=== PATIENT | female | born 2000 | race Two or more races ===

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

== ENCOUNTER 2021-01-07 22:59 | Emergency (ER) | payer BC ==
--- NOTE | 2021-01-08 00:24 | EDM.PDOCBH ---
ED HPI GENERAL MEDICAL PROBLEM - General Chief Complaint: Behavioral/Psych Stated Complaint: ANXIETY Time Seen by Provider: 01/07/21 23:50 Source of Information: Reports: Patient, Family History Limitations: Reports: No Limitations - History of Present Illness INITIAL COMMENTS - FREE TEXT/NARRATIVE: 20-year-old female who 2 weeks ago had an anxiety like attack where she felt the right side of her body felt "weird". Since that time she has intermittent recurrences of just a strange sensation on the right side of her body, not really numbness or weakness, she cannot really describe it. She is having no pain, no headaches, no visual complaints, no rashes. She has a chronic problem with somatic manifestations of anxiety. Onset: Unknown/Unsure Duration: Other (Waxing and waning for the last few weeks) Location: Reports: Other (She complains about a strange sensation on the right side of her body) Associated Symptoms: Denies: Chest Pain, Cough, Fever/Chills, Headaches, Loss of Appetite, Nausea/Vomiting, Shortness of Breath - Related Data Allergies Allergy/AdvReac Type Severity Reaction Status Date / Time No Known Allergies Allergy Verified 01/07/21 23:59 Home Meds: Home Meds NK [No Known Home Meds] 07/24/19 [History] Past Medical History - Past Health History Medical/Surgical History: Denies Medical/Surgical History Social & Family History - Tobacco Use Tobacco Use Status *Q: Never Tobacco User - Caffeine Use Caffeine Use: Reports: None - Recreational Drug Use Recreational Drug Use: No ED ROS GENERAL - Review of Systems Review Of Systems: See Below Constitutional: Reports: Malaise. Denies: Fever, Chills HEENT: Denies: Eye Pain, Throat Pain, Vision Change Respiratory: Denies: Shortness of Breath, Cough Cardiovascular: Denies: Chest Pain, Palpitations Endocrine: Denies: Fatigue GI/Abdominal: Denies: Abdominal Pain, Nausea, Vomiting Musculoskeletal: Reports: No Symptoms Skin: Denies: Rash Neurological: Reports: Paresthesia (Not really numbness but just a strange sensation on the right side of her body) ED EXAM, BEHAVIORAL HEALTH - Physical Exam Exam: See Below Exam Limited By: No Limitations General Appearance: Alert, No Apparent Distress Eye Exam: Bilateral Eye: Normal Inspection Head: Atraumatic Neck: Supple, Non-Tender Respiratory/Chest: Lungs Clear Cardiovascular: Regular Rate, Rhythm GI/Abdominal: Non-Tender Extremities: Normal Inspection Neurological: Alert, Normal Mood/Affect, No Motor/Sensory Deficits, Oriented x 3 Psychiatric: Alert, Normal Affect Skin Exam: Warm, Dry COURSE, BEHAVIORAL HEALTH COMP - Course Vital Signs: Last Vital Signs Temp 97.4 F 01/08/21 00:01 Pulse 89 01/08/21 00:01 Resp 16 01/08/21 00:01 BP 134/88 01/08/21 00:01 Pulse Ox 97 01/08/21 00:01 Re-Assessment/Re-Exam: Symptoms and physical exam are normal at this time. I think she should recheck at the clinic as planned, and discuss further work-up such as MRI or possibly Holter monitor. I do think a long-term treatment for anxiety with an SSRI or similar medication would be beneficial. Departure - Departure Time of Disposition: 00:36 Disposition: Home, Self-Care 01 Clinical Impression: Anxiety, Paresthesias - Discharge Information Instructions: Paresthesia Referrals: PCP,None [Primary Care Provider] - Forms: ED Department Discharge Care Plan Goals: See if someone can see you in the clinic to discuss your symptoms and schedule an MRI prior to starting medications which may be helpful. Sepsis Event Note (ED) - Evaluation Sepsis Screening Result: No Definite Risk - Focused Exam Vital Signs: Vital Signs Temp Pulse Resp BP Pulse Ox 01/08/21 00:01 97.4 F 89 16 134/88 97 01/07/21 23:40 97.4 F 89 16 134/88 97
== END 2021-01-08 00:36 | disposition home or self-care (01) ==
LOC: JP.ED 22:59
DX: F41.9 Anxiety disorder, unspecified (principal); R20.2 Paresthesia of skin
CPT/HCPCS: 99283

== ENCOUNTER 2021-01-09 20:45 | Emergency (ER) | payer BC ==
[2021-01-09] MEDS ORDERED: LORazepam 1 MG Tab PO ONE (21:35)
--- NOTE | 2021-01-09 21:42 | EDM.PDOCBH ---
ED HPI GENERAL MEDICAL PROBLEM - General Chief Complaint: Behavioral/Psych Stated Complaint: ANXIETY Time Seen by Provider: 01/09/21 21:10 Source of Information: Reports: Patient, Family History Limitations: Reports: No Limitations - History of Present Illness INITIAL COMMENTS - FREE TEXT/NARRATIVE: 20-year-old female in for recheck of anxiety. I have seen her several times the last few years with anxiety manifesting as physical symptoms such as numbness on the right side. I saw her in the emergency room 2 nights ago, she had a recheck in clinic today with numerous labs and has an MRI of her head tomorrow. She is very anxious tonight, feels fatigued, still having right-sided symptoms and did not think she can wait until tomorrow. Onset: Unknown/Unsure Duration: Chronic Associated Symptoms: Reports: Other (Right-sided sensations difficult to describe) - Related Data Allergies Allergy/AdvReac Type Severity Reaction Status Date / Time No Known Allergies Allergy Verified 01/09/21 21:09 Home Meds: Home Meds NK [No Known Home Meds] 07/24/19 [History] Past Medical History - Past Health History Medical/Surgical History: Denies Medical/Surgical History Psychiatric History: Reports: Anxiety - Infectious Disease History Infectious Disease History: Reports: None Social & Family History - Tobacco Use Tobacco Use Status *Q: Never Tobacco User - Caffeine Use Caffeine Use: Reports: None - Recreational Drug Use Recreational Drug Use: No ED ROS GENERAL - Review of Systems Review Of Systems: See Below Constitutional: Reports: Malaise. Denies: Fever, Chills HEENT: Denies: Vision Change Respiratory: Denies: Shortness of Breath Cardiovascular: Denies: Chest Pain Endocrine: Reports: Fatigue GI/Abdominal: Denies: Nausea, Vomiting Skin: Reports: No Symptoms Neurological: Reports: Paresthesia (Right-sided paresthesias or "strange feeling") Psychiatric: Reports: Anxiety, Depression ED EXAM, BEHAVIORAL HEALTH - Physical Exam Exam: See Below Exam Limited By: No Limitations General Appearance: Alert, No Apparent Distress Eye Exam: Bilateral Eye: Normal Inspection Head: Atraumatic Neck: Supple, Non-Tender Respiratory/Chest: Lungs Clear Cardiovascular: Regular Rate, Rhythm Neurological: Alert, No Motor/Sensory Deficits (Strength and sensation to extremities are equal, reflexes are normal), Oriented x 3 Psychiatric: Restless, Other (Continues to be very anxious) Skin Exam: Warm, Dry COURSE, BEHAVIORAL HEALTH COMP - Course Vital Signs: Last Vital Signs Temp 97.7 F 01/09/21 21:04 Pulse 88 01/09/21 21:04 Resp 16 01/09/21 21:04 BP 128/83 01/09/21 21:04 Pulse Ox 99 01/09/21 21:04 Orders, Labs, Meds: Medications Discontinued Medications Generic Name Dose Route Start Last Admin Trade Name Herb PRN Reason Stop Dose Admin Lorazepam 1 mg 01/09/21 21:35 01/09/21 21:43 Lorazepam 1 Mg Tab PO 01/09/21 21:36 1 mg ONETIME ONE Administration Re-Assessment/Re-Exam: Reviewed her labs from the clinic today and they are all normal. Physical exam is normal. I did give her 1 mg of Ativan so she can rest tonight before her MRI, I think she should be a good candidate for an SSRI when and if her MRI is negative. Departure - Departure Time of Disposition: 21:48 Disposition: Home, Self-Care 01 Clinical Impression: Panic disorder, Anxiety - Discharge Information Instructions: Managing Anxiety, Adult Referrals: Rachel Dias MD [Primary Care Provider] - Forms: ED Department Discharge Care Plan Goals: Rest tonight, return tomorrow for your MRI as scheduled. Sepsis Event Note (ED) - Focused Exam Vital Signs: Vital Signs Temp Pulse Resp BP Pulse Ox 01/09/21 21:04 97.7 F 88 16 128/83 99
== END 2021-01-09 21:49 | disposition home or self-care (01) ==
LOC: JP.ED 20:45
DX: F41.0 Panic disorder [episodic paroxysmal anxiety] (principal)
CPT/HCPCS: 99283; A9270

== ENCOUNTER 2021-01-11 15:58 | Emergency (ER) | payer BC ==
--- NOTE | 2021-01-11 16:26 | EDM.PDOCBH ---
ED HPI GENERAL MEDICAL PROBLEM - General Chief Complaint: Behavioral/Psych Stated Complaint: WORSENING ANXIETY Time Seen by Provider: 01/11/21 16:02 Source of Information: Reports: Patient, Family, RN Notes Reviewed History Limitations: Reports: No Limitations - History of Present Illness INITIAL COMMENTS - FREE TEXT/NARRATIVE: 20-year-old female presents emergency department day complaint of increasing anxiety depression, she states has had depression for about 3 weeks has problem with appetite problems with concentration her anxiety has gotten significantly worse. She was in the emergency department yesterday did receive 1 mg Ativan for her depressive symptoms can get into her primary care. Recent MRI done which was unremarkable per her report - Related Data Allergies Allergy/AdvReac Type Severity Reaction Status Date / Time No Known Allergies Allergy Verified 01/11/21 16:19 Home Meds: Home Meds Sertraline [Zoloft] 25 mg PO DAILY #30 tablet 01/11/21 [Rx] Past Medical History Psychiatric History: Reports: Anxiety, Depression - Infectious Disease History Infectious Disease History: Reports: None Social & Family History - Tobacco Use Tobacco Use Status *Q: Never Tobacco User - Caffeine Use Caffeine Use: Reports: None - Recreational Drug Use Recreational Drug Use: No ED ROS GENERAL - Review of Systems Review Of Systems: See Below Constitutional: Reports: No Symptoms Respiratory: Reports: No Symptoms Cardiovascular: Reports: No Symptoms Psychiatric: Reports: Anxiety, Depression. Denies: Suicidal Ideation ED EXAM, BEHAVIORAL HEALTH - Physical Exam Exam: See Below Exam Limited By: No Limitations General Appearance: Alert, WD/WN, No Apparent Distress Respiratory/Chest: No Respiratory Distress Psychiatric: Alert, Normal Cognition, Depressed Mood, Other. No: Suicidal Thoughts COURSE, BEHAVIORAL HEALTH COMP - Course Vital Signs: Last Vital Signs Temp 97.7 F 01/11/21 16:18 Pulse 102 H 01/11/21 16:18 Resp 16 01/11/21 16:18 BP 126/91 H 01/11/21 16:18 Pulse Ox 100 01/11/21 16:18 Departure - Departure Time of Disposition: 16:25 Disposition: Home, Self-Care 01 Condition: Fair Clinical Impression: Depressive disorder - Discharge Information Prescriptions: Sertraline [Zoloft] 25 mg PO DAILY #30 tablet Instructions: Major Depressive Disorder, Adult Referrals: PCP,None [Primary Care Provider] - Additional Instructions: Start your medication today, please keep your follow-up appointment with your primary care provider call return to the emergency department worsening of symptoms Sepsis Event Note (ED) - Evaluation Sepsis Screening Result: No Definite Risk - Focused Exam Vital Signs: Vital Signs Temp Pulse Resp BP Pulse Ox 01/11/21 16:18 97.7 F 102 H 16 126/91 H 100 01/11/21 16:06 97.7 F 102 H 16 126/91 H 100 - Assessment/Plan Plan: Assessment Acuity = acute Site and laterality = depressive disordeR Etiology = unknown Manifestations = none Location of injury = Home Lab values = none Plan Like to treat empirically with try Zoloft 25 mg once a day she will start this medication today medication faxed to site pharmacy she has a follow-up appointment with her primary care on the ninth of this month This note was dictated using [employer] voice recognition software please call with any questions on syntax or grammar.
== END 2021-01-11 17:38 | disposition home or self-care (01) ==
LOC: JP.ED 15:58
DX: F32.9 Major depressive disorder, single episode, unspecified (principal)
CPT/HCPCS: 81001; 89055; 99284

== ENCOUNTER 2024-06-06 01:28 | Emergency (ER) | payer BC, MEDICAID ==
[2024-06-06] MEDS: Ibuprofen 600 MG Tab PO ONE (01:55)
== END 2024-06-06 02:29 | disposition home or self-care (01) ==
LOC: JP.ED 01:28
DX: R07.89 Other chest pain (principal); Z86.16 Personal history of COVID-19; Z79.899 Other long term (current) drug therapy
CPT/HCPCS: 71046; 99284; A9270